=== PATIENT | female | born 1990 | race Caucasian/White ===

== ENCOUNTER 2018-09-26 10:19 | Emergency (ER) | payer BC, OTHER ==
[2018-09-26] MEDS ORDERED: METHYLPREDNISOLONE 125 MG INJ ONE (11:22)
[2018-09-26] MEDS ORDERED: NA CHLORIDE 0.9% 1,000 ML ONE (11:23)
[2018-09-26] MEDS ORDERED: FAMOTIDINE 20 MG/2 ML VIAL IV ONE (11:23)
[2018-09-26] MEDS ORDERED: predniSONE 20 MG TAB ONE (11:23)
[2018-09-26] MEDS ORDERED: DIPHENHYDRAMINE 50 MG/ML VIAL ONE (11:23)
[2018-09-26 11:43] LABS: Absolute Lymphocytes (CBC) 2.3 K/uL (0.7-4.9); Basophils % 0.2 % (0-1.3); Eosinophils % 0.6 % (0-4.4); Hematocrit 46.6 % (36.0-45.0); MPV 11.7 fL (7.6-11.3); Monocytes % 5.3 % (3.3-12.3); RBC Red Blood Cell Count 5.21 M/uL (3.86-4.86)
[2018-09-26 12:01] LABS: Albumin 3.8 g/dL (3.4-5.0); Bilirubin Total 0.5 mg/dL (0.2-1.0); Protein, Total 7.9 g/dL (6.4-8.2)
--- NOTE | 2018-09-26 12:04 | ER ---
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 Transition of care: patient was not received from another setting of care. Onset: The symptoms/episode began/occurred acutely. Onset of symptoms was September 26, 2018. Risk Assessment: Do you want to hurt yourself or someone else?. Initial Sepsis Screen: Does the patient meet any 2 criteria? No. Patient's initial sepsis screen is negative. Does the patient have a suspected source of infection? No. Patient's initial sepsis screen is negative. Care prior to arrival: None. 10:24 Method Of Arrival: Ambulatory 10:24 Acuity: ARIANE 2 hj Historical: - Allergies: 10:26 PENICILLINS; hj - PMHx: 10:26 None; hj - PSHx: 10:26 Tonsillectomy; hj - Immunization history:: Adult Immunizations up to date. - Family history:: not pertinent. - Ebola Screening: : Patient denies travel to an Ebola-affected area in the 21 days before illness onset. Screenin:35 Abuse screen: Denies threats or abuse. Denies injuries from another. Nutritional aj1 screening: No deficits noted. Tuberculosis screening: No symptoms or risk factors identified. 13:02 Fall Risk None identified. aj1 Assessment: 10:35 General: Appears in no apparent distress. uncomfortable, Behavior is calm, cooperative, aj1 appropriate for age. Pain: Denies pain. Neuro: Level of Consciousness is awake, alert, obeys commands, Oriented to person, place, time, situation. Cardiovascular: Denies chest pain, shortness of breath, Heart tones S1 S2 present Patient's skin is warm and dry. Rhythm is sinus rhythm. Respiratory: Airway is patent Respiratory effort is even, unlabored, Respiratory pattern is regular, symmetrical, Breath sounds are clear bilaterally. GI: No signs and/or symptoms were reported involving the gastrointestinal system. : No signs and/or symptoms were reported regarding the genitourinary system. 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 Derm: Skin is dry, Skin is pale, Skin temperature is warm Reports itching. Musculoskeletal: No signs and/or symptoms reported regarding the musculoskeletal system. Circulation, motion, and sensation intact. 11:39 Reassessment: Patient appears in no apparent distress at this time. No changes from aj1 previously documented assessment. Patient and/or family updated on plan of care and expected duration. Pain level reassessed. Patient is alert, oriented x 3, equal unlabored respirations, skin warm/dry/pink. Patient states that she feels about the same since arrival but her itching is starting to get better. 12:31 Reassessment: Patient discharge pending patient finishing drinking K-lyte. aj1 12:32 Reassessment: Patient and/or family updated on plan of care and expected duration. Pain aj1 level reassessed. General: Appears in no apparent distress. comfortable, Behavior is calm, cooperative, appropriate for age. Pain: Denies pain. Neuro: Level of Consciousness is awake, alert, obeys commands, Oriented to person, place, time, situation. Cardiovascular: Patient's skin is warm and dry. Rhythm is sinus rhythm. Respiratory: Airway is patent Respiratory effort is even, unlabored, Respiratory pattern is regular, symmetrical. GI: No signs and/or symptoms were reported involving the gastrointestinal system. Derm: Skin is pale. Musculoskeletal: No signs and/or symptoms reported regarding the musculoskeletal system. Circulation, motion, and sensation intact. 13:07 Reassessment: Patient appears in no apparent distress at this time. No changes from aj1 previously documented assessment. Patient and/or family updated on plan of care and expected duration. Pain level reassessed. Patient is alert, oriented x 3, equal unlabored respirations, skin warm/dry/pink. Vital Signs: 10:27 BP 127 / 87; Pulse 110; Resp 20; Temp 97.6(TE); Pulse Ox 96% on R/A; Weight 98.88 kg; hj Height 5 ft. 4 in. (162.56 cm); Pain 0/10; 11:00 BP 109 / 85; Pulse 96; Resp 20; Pulse Ox 100% on R/A; aj1 11:30 BP 114 / 84; Pulse 82; Resp 18; Pulse Ox 100% ; aj1 12:32 BP 113 / 73; Pulse 92; Resp 20; Pulse Ox 100% on R/A; aj1 10:27 Body Mass Index 37.42 (98.88 kg, 162.56 cm) ED Course: 10:24 Patient arrived in ED. hj 10:26 Triage completed. hj 10:26 Arm band placed on left wrist. hj 10:35 Patient has correct armband on for positive identification. monitor car operator on. Pulse aj1 ox on. NIBP on. 10:35 No provider procedures requiring assistance completed. Inserted saline lock: 22 gauge aj1 in right forearm, using aseptic technique. Blood collected. 10:38 Paras Regan MD is Attending Physician. [facility] 11:00 Lo Madsen RN is Primary Nurse. aj1 13:07 IV discontinued, intact, bleeding controlled, No redness/swelling at site. Pressure aj1 dressing applied. Administered Medications: 11:22 Drug: SOLU-Medrol 125 mg Route: IVP; Site: right forearm; aj1 12:20 Follow up: Response: No adverse reaction aj1 11:22 Drug: predniSONE 60 mg Route: PO; aj1 12:20 Follow up: Response: No adverse reaction aj1 11:23 Drug: NS 0.9% 1000 ml Route: IV; Rate: 1 bolus; Site: right forearm; aj1 13:09 Follow up: IV Status: Completed infusion; IV Intake: 1000ml aj1 11:23 Drug: Benadryl 50 mg Route: IVP; Site: right forearm; aj1 12:20 Follow up: Response: No adverse reaction aj1 11:23 Drug: Pepcid 40 mg Route: IVP; Site: right forearm; aj1 12:20 Follow up: Response: No adverse reaction aj1 12:34 Drug: Potassium Effervescent Tablet 50 mEq Route: PO; aj1 13:12 Follow up: Response: No adverse reaction aj1 Intake: 13:09 IV: 1000ml; Total: 1000ml. aj1 Outcome: 12:03 Discharge ordered by . [facility] 13:08 Discharged to home ambulatory. aj1 13:08 Condition: good 13:08 Discharge instructions given to patient, family, Instructed on discharge instructions, follow up and referral plans. medication usage, Demonstrated understanding of instructions, follow-up care, medications, Prescriptions given X 4. 13:13 Patient left the ED. iw Signatures: Lo Madsen RN RN aj1 Paras Regan MD MD cha Williams, Irene, RN RN iw Casper Sy RN RN hj Corrections: (The following items were deleted from the chart) 10:28 10:27 BP 127 / 87; Pulse 120bpm; Resp 20bpm; Pulse Ox 96% RA; Temp 97.6F Temporal; hj 98.88 kg; Height 5 ft. 4 in.; BMI: 37.4; Pain 0/10; hj 11:40 10:35 Derm: Skin is dry, Skin is pale, Skin temperature is warm aj1 aj1
--- NOTE | 2018-09-26 12:04 | EDPHYS ---
Physician Documentation [facility] Name: Anuja Guevara Age: 27 yrs Sex: Female : 1990 Arrival Date: 09/26/2018 Time: 10:24 Bed 26 Private MD: ED Physician Paras Regan HPI: 09/26 11:56 This 27 yrs old Female presents to ER via Ambulatory with complaints of graham Allergic Reaction. 11:56 The patient presents with difficulty swallowing, rash, redness of skin, runny nose, graham swelling of the tongue. Historical: - Allergies: 10:26 PENICILLINS; hj - PMHx: 10:26 None; hj - PSHx: 10:26 Tonsillectomy; hj - Immunization history:: Adult Immunizations up to date. - Family history:: not pertinent. - Ebola Screening: : Patient denies travel to an Ebola-affected area in the 21 days before illness onset. ROS: 11:56 Constitutional: Negative for fever, chills, and weight loss, Eyes: Negative for injury, graham pain, redness, and discharge, Neck: Negative for injury, pain, and swelling, Cardiovascular: Negative for chest pain, palpitations, and edema, Respiratory: Negative for shortness of breath, cough, wheezing, and pleuritic chest pain, Abdomen/GI: Negative for abdominal pain, nausea, vomiting, diarrhea, and constipation, Back: Negative for injury and pain, : Negative for injury, bleeding, discharge, and swelling, MS/Extremity: Negative for injury and deformity, Neuro: Negative for headache, weakness, numbness, tingling, and seizure, Psych: Negative for depression, anxiety, suicide ideation, homicidal ideation, and hallucinations, Allergy/Immunology: Negative for hives, rash, and allergies, Endocrine: Negative for neck swelling, polydipsia, polyuria, polyphagia, and marked weight changes, Hematologic/Lymphatic: Negative for swollen nodes, abnormal bleeding, and unusual bruising. 11:56 ENT: Positive for difficulty swallowing. 11:56 ENT: Positive for 11:56 ENT: Positive for hoarseness. graham 11:56 Skin: Positive for rash. Exam: 11:56 Constitutional: This is a well developed, well nourished patient who is awake, alert, graham and in no acute distress. Head/Face: Normocephalic, atraumatic. Eyes: Pupils equal round and reactive to light, extra-ocular motions intact. Lids and lashes normal. Conjunctiva and sclera are non-icteric and not injected. Cornea within normal limits. Periorbital areas with no swelling, redness, or edema. Neck: Trachea midline, no thyromegaly or masses palpated, and no cervical lymphadenopathy. Supple, full range of motion without nuchal rigidity, or vertebral point tenderness. No Meningismus. Chest/axilla: Normal chest wall appearance and motion. Nontender with no deformity. No lesions are appreciated. Cardiovascular: Regular rate and rhythm with a normal S1 and S2. No gallops, murmurs, or rubs. Normal PMI, no JVD. No pulse deficits. Respiratory: Lungs have equal breath sounds bilaterally, clear to auscultation and percussion. No rales, rhonchi or wheezes noted. No increased work of breathing, no retractions or nasal flaring. Abdomen/GI: Soft, non-tender, with normal bowel sounds. No distension or tympany. No guarding or rebound. No evidence of tenderness throughout. Back: No spinal tenderness. No costovertebral tenderness. Full range of motion. Skin: Warm, dry with normal turgor. Normal color with no rashes, no lesions, and no evidence of cellulitis. MS/ Extremity: Pulses equal, no cyanosis. Neurovascular intact. Full, normal range of motion. Neuro: Awake and alert, GCS 15, oriented to person, place, time, and situation. Cranial nerves II-XII grossly intact. Motor strength 5/5 in all extremities. Sensory grossly intact. Cerebellar exam normal. Normal gait. Psych: Awake, alert, with orientation to person, place and time. Behavior, mood, and affect are within normal limits. 11:56 ENT: Mouth: Tongue: is moist, is swollen. 11:56 Skin: Appearance: Color: erythematous, Temperature: normal temperature, Moisture: normal moisture, petechiae, not noted, ecchymosis, not noted, diaphoresis is not appreciated, swelling, is not appreciated. Vital Signs: 10:27 BP 127 / 87; Pulse 110; Resp 20; Temp 97.6(TE); Pulse Ox 96% on R/A; Weight 98.88 kg; hj Height 5 ft. 4 in. (162.56 cm); Pain 0/10; 11:00 BP 109 / 85; Pulse 96; Resp 20; Pulse Ox 100% on R/A; aj1 11:30 BP 114 / 84; Pulse 82; Resp 18; Pulse Ox 100% ; aj1 12:32 BP 113 / 73; Pulse 92; Resp 20; Pulse Ox 100% on R/A; aj1 10:27 Body Mass Index 37.42 (98.88 kg, 162.56 cm) hj MDM: 10:38 Patient medically screened. [facility] 12:00 Data reviewed: vital signs, nurses notes, lab test result(s), CBC, electrolytes. [facility] 09/26 10:59 Order name: CBC with Diff; Complete Time: 11:55 [facility] 09/26 10:59 Order name: Comprehensive Metabolic Panel; Complete Time: 12:56 [facility] 09/26 12:10 Order name: Urine Dipstick--Ancillary (enter results); Complete Time: 12:56 09/26 12:10 Order name: Urine --Ancillary (enter results); Complete Time: 12:56 09/26 10:59 Order name: Urine Dipstick-Ancillary (obtain specimen); Complete Time: 12:13 [facility] 09/26 10:59 Order name: Urine Test (obtain specimen); Complete Time: 12:13 [facility] 09/26 12:07 Order name: PO challenge: 2 juices; Complete Time: 12:34 [facility] Administered Medications: 11:22 Drug: SOLU-Medrol 125 mg Route: IVP; Site: right forearm; aj1 12:20 Follow up: Response: No adverse reaction aj1 11:22 Drug: predniSONE 60 mg Route: PO; aj1 12:20 Follow up: Response: No adverse reaction aj1 11:23 Drug: NS 0.9% 1000 ml Route: IV; Rate: 1 bolus; Site: right forearm; aj1 13:09 Follow up: IV Status: Completed infusion; IV Intake: 1000ml aj1 11:23 Drug: Benadryl 50 mg Route: IVP; Site: right forearm; aj1 12:20 Follow up: Response: No adverse reaction aj1 11:23 Drug: Pepcid 40 mg Route: IVP; Site: right forearm; aj1 12:20 Follow up: Response: No adverse reaction aj1 12:34 Drug: Potassium Effervescent Tablet 50 mEq Route: PO; aj1 13:12 Follow up: Response: No adverse reaction aj1 Disposition: 09/26/18 12:03 Discharged to Home. Impression: Allergy, unspecified, Angioneurotic edema, Hypokalemia. - Condition is Stable. - Discharge Instructions: Potassium Content of Foods, Angioedema, Angioedema, [id number], Hypokalemia. - Prescriptions for Benadryl 25 mg Oral Capsule - take 1 capsule by ORAL route every 6 hours As needed; 30 tablet. Pepcid 20 mg Oral Tablet - take 1 tablet by ORAL route every 12 hours for 10 days; 20 tablet. Prednisone 20 mg Oral Tablet - take 2 tablet by ORAL route once daily for 5 days; 10 tablet. EpiPen 0.3 mg Injection auto- injector - inject 1 pen by INTRAMUSCULAR route one time Inject into the outer portion of the thigh, through clothing if necessary. Indicated in the emergency treatment of allergic reactions; 1 box. - Medication Reconciliation Form, Thank You Letter, Antibiotic Education, Prescription Opioid Use form. - Follow up: Private Physician; When: 2 - 3 days; Reason: Recheck today's complaints, Continuance of care, Re-evaluation by your physician. - Problem is new. - Symptoms have improved. Signatures: Dispatcher [employer] EDMS Lo Madsen RN RN aj1 Paras Regan MD MD cha Williams, Irene, RN RN Casper Sy RN RN Corrections: (The following items were deleted from the chart) 12:07 12:03 09/26/2018 12:03 Discharged to Home. Impression: Allergy, unspecified; graham Angioneurotic edema. Condition is Stable. Forms are Medication Reconciliation Form, Thank You Letter, Antibiotic Education, Prescription Opioid Use. Follow up: Private Physician; When: 2 - 3 days; Reason: Recheck today's complaints, Continuance of care, Re-evaluation by your physician. Problem is new. Symptoms have improved. graham 13:13 12:07 09/26/2018 12:03 Discharged to Home. Impression: Allergy, unspecified; iw Angioneurotic edema; Hypokalemia. Condition is Stable. Discharge Instructions: Angioedema, Angioedema, [id number]. Prescriptions for Benadryl 25 mg Oral Capsule - take 1 capsule by ORAL route every 6 hours As needed; 30 tablet, Pepcid 20 mg Oral Tablet - take 1 tablet by ORAL route every 12 hours for 10 days; 20 tablet, Prednisone 20 mg Oral Tablet - take 2 tablet by ORAL route once daily for 5 days; 10 tablet, EpiPen 0.3 mg Injection auto-injector - inject 1 pen by INTRAMUSCULAR route one time Inject into the outer portion of the thigh, through clothing if necessary. Indicated in the emergency treatment of allergic reactions; 1 box. and Forms are Medication Reconciliation Form, Thank You Letter, Antibiotic Education, Prescription Opioid Use. Follow up: Private Physician; When: 2 - 3 days; Reason: Recheck today's complaints, Continuance of care, Re-evaluation by your physician. Problem is new. Symptoms have improved. graham
[2018-09-26 12:11] LABS: Potassium 2.9 mmol/L (3.5-5.1)
[2018-09-26 12:28] LABS: Urine Blood NEGATIVE (NEG); Urine Glucose NEGATIVE (NEG); Urine Protein NEGATIVE (NEG); Urine pH 6.5 (5.0-7.0)
[2018-09-26] MEDS ORDERED: POTASSIUM 25 MEQ EFFERV TAB ONE (12:39)
== END 2018-09-26 13:13 | disposition home or self-care (01) ==
LOC: ER 10:19
DX: T78.40XA Allergy, unspecified, initial encounter (principal); T78.3XXA Angioneurotic edema, initial encounter; E87.6 Hypokalemia; Z88.0 Allergy status to penicillin
CPT/HCPCS: 36415; 80053; 81003; 81025; 85025; 96361; 96374; 96375; 99284; J2930; J7030; J7512